=== PATIENT | male | born 1960 | race Caucasian/White ===

== ENCOUNTER 2016-07-07 08:42 | Outpatient (CLI) | payer OTHER ==
--- NOTE | 2016-07-07 12:22 | DIAGNOSTIC IMAGING REPORT ---
PROCEDURE: US SCROTUM/TESTICLE INDICATION: LT TESTI LUMP TECHNIQUE: Wu scale and color Doppler sonographic images through the scrotum were obtained. COMPARISON: None. FINDINGS: The right testicle measures 5.1 x 3.2 x 2.8 cm and the left measures 4.9 x 2.9 x 2.8 cm. Both testicles demonstrate homogeneous echotexture without solid mass, cyst, or numerous microcalcifications. Color Doppler imaging demonstrates normal and symmetric arterial and venous testicular flow. No suspicious hyperemia. Within the tail of the left epididymis, there is a focal mass measuring about 1.2 by 1.2 x 0.7 cm with mixed echogenicity. Much of it is homogeneously hypoechoic, however there is a curvilinear hyperechoic region of the fat within it. Color Doppler imaging demonstrates increased vascularity in this region. There is a moderate surrounding simple hydrocele. The more proximal aspect of the epididymis demonstrates normal echotexture, size, and vascularity. The right epididymis is normal. No significant scrotal skin thickening. IMPRESSION: 1. Hypervascular, hypoechoic, fat containing 1.2 cm mass in the tail of the left epididymis. Differential diagnosis includes adenomatoid tumor, germ cell tumor, leiomyoma, epidermoid, or less likely papillary cystadenoma. Alternatively the echogenic focus may represent calcification and there could be a remote epididymal tail torsion. Nonetheless, urology consult is recommended.
== END 2016-07-07 23:00 ==
LOC: US SRH 08:42
DX: N50.9 Disorder of male genital organs, unspecified (principal)